=== PATIENT | male | born 1955 | race Caucasian/White ===

== ENCOUNTER 2020-08-12 17:17 | Observation (INO) | payer MEDICARE, BC ==
[2020-08-12] MEDS ORDERED: Bupivacaine 0.5%/EPINEPHrine 1:200,000 10 ML SDV INJECT ONE (17:18)
[2020-08-12] MEDS ORDERED: Sodium Chloride 0.9% 10 ML Syringe FLUSH PRN (17:40)
[2020-08-12] MEDS ORDERED: Lactated Ringers 1,000 ML IV SCH (17:45)
[2020-08-12] MEDS ORDERED: Piperacillin/Tazobactam 3.375 GM in Sodium Chloride 0.9% 50 ML IV SCH (18:00)
--- NOTE | 2020-08-12 18:05 | PCM.PN ---
- General Info Date of Service: 08/12/20 - Review of Systems Systems Review Comment:: 65 y/o male seen today in clinic with progressive RLQ pain. Now pain severe with movement and pressure. Also mildly elevated WBC. CT scan shows findings suggestive of acute appendicitis. Patient here for appendectomy. I have discussed the proposed appendectomy with the patient. Expectations of laparoscopic procedure with possible need to convert to an open procedure reviewed. Risks such as but not limited to bleeding, infection, organ injury and other diagnosis reviewed. The patient's questions reviewed and answered. He agrees to proceed. - Patient Data Vitals - Most Recent: Last Vital Signs Temp 100 F 08/12/20 17:58 Pulse 82 08/12/20 17:58 Resp 18 08/12/20 17:58 BP 127/78 08/12/20 17:58 Pulse Ox 98 08/12/20 17:58 Weight - Most Recent: 229 lb 6.4 oz Med Orders - Current: Current Medications Lactated Ringer's (Ringers, Lactated) 1,000 mls @ 125 mls/hr IV ASDIRECTED [facility] Last Admin: 08/12/20 17:45 Dose: 125 mls/hr Documented by: Sodium Chloride (Sodium Chloride 0.9% 10 Ml Syringe) 10 ml FLUSH ASDIRECTED PRN PRN Reason: Keep Vein Open Sepsis Event Note - Focused Exam Vital Signs: Vital Signs Temp Pulse Resp BP Pulse Ox 08/12/20 17:58 100 F 82 18 127/78 98 - Problem List Review Problem List Initiated/Reviewed/Updated: Yes - My Orders Last 24 Hours: My Active Orders 08/12/20 Dinner Nothing Per Oral Diet [DIET] 08/12/20 17:40 Patient to Empty Bladder [RC] ASDIRECTED RT Incentive Spirometry [RC] ASDIRECTED Verify Patient Consent Obtain [RC] ASDIRECTED Sodium Chloride 0.9% [Saline Flush] 10 ml FLUSH ASDIRECTED PRN Peripheral IV Insertion Adult [OM.PC] Routine Sequential Compression Device [OM.PC] Routine Resuscitation Status Routine 08/12/20 17:45 Lactated Ringers [Ringers, Lactated] 1,000 ml IV ASDIRECTED - Assessment Assessment:: Acute Appendicitis - Plan Plan:: Appendectomy
[2020-08-12] MEDS ORDERED: Bupivacaine 0.5%/EPINEPHrine 1:200,000 50 ML MDV INJECT ONE (18:26)
[2020-08-12] MEDS ORDERED: Ondansetron 4 MG/2 ML SDV IVPUSH PRN (19:11)
[2020-08-12] MEDS ORDERED: Morphine 2 MG/ML SYRINGE IVPUSH PRN (19:11)
--- NOTE | 2020-08-12 19:11 | PCM.OPNOTE ---
- General Post-Op/Procedure Note Date of Surgery/Procedure: 08/12/20 Operative Procedure(s): Laparoscopic Appendectomy Findings: Acutely inflamed appendix with exudate Pre Op Diagnosis: Acute Appendicitis Post-Op Diagnosis: Acute Appendicitis Anesthesia Technique: General ET Tube Primary Surgeon: Des Panda Pathology: Appendix EBL in mLs: 20 Complications: None Condition: Good
[2020-08-12] MEDS ORDERED: Ondansetron 4 MG/2 ML SDV IVPUSH ONE (19:16)
[2020-08-12] MEDS ORDERED: Acetaminophen 1,000 MG/100 ML Infusion Bottle Premix IV ONE (19:16)
[2020-08-12] MEDS ORDERED: Midazolam 1 MG/ML 2 ML SDV IV ONE (19:16)
[2020-08-12] MEDS ORDERED: fentaNYL 100 MCG/2 ML SDV IV ONE (19:16)
[2020-08-12] MEDS ORDERED: Neostigmine Methylsulfate 10 MG/10 ML MDV IVPUSH ONE (19:16)
[2020-08-12] MEDS ORDERED: Glycopyrrolate 0.2 MG/ML 5 ML MDV IV ONE (19:16)
[2020-08-12] MEDS ORDERED: Lidocaine 2% 5 ML SDV INJECT ONE (19:16)
[2020-08-12] MEDS ORDERED: Propofol 200 MG/20 ML SDV IV ONE (19:16)
[2020-08-12] MEDS ORDERED: Lactated Ringers 1,000 ML IV ONE (19:16)
[2020-08-12] MEDS ORDERED: Metoprolol Tartrate 5 MG/5 ML SDV IV ONE (19:16)
[2020-08-12] MEDS ORDERED: Ketorolac 30 MG/ML SDV IVPUSH ONE (19:16)
[2020-08-12] MEDS ORDERED: Succinylcholine 200 MG/10 ML MDV IV ONE (19:16)
[2020-08-12] MEDS ORDERED: Rocuronium 100 MG/10 ML MDV IV ONE (19:16)
[2020-08-12] MEDS ORDERED: Dexamethasone 4 MG/ML 5 ML MDV IVPUSH ONE (19:16)
[2020-08-12] MEDS: Lactated Ringers 1,000 ML IV SCH (23:16)
--- NOTE | 2020-08-13 01:20 | OR ---
DATE OF OPERATION: 08/12/2020 SURGEON: Des Panda MD PREOPERATIVE DIAGNOSIS: Acute appendicitis. POSTOPERATIVE DIAGNOSIS: Acute exudative appendicitis. OPERATION PERFORMED: Laparoscopic appendectomy. INDICATIONS FOR SURGERY: This 65-year-old male presented to the outpatient clinic with lower abdominal pain which had become severe in the right lower quadrant. CT scan of the abdomen was performed which showed findings consistent with acute appendicitis and he comes for appendectomy. FINDINGS: The appendix is acutely inflamed with some surrounding exudate. It does not appear to be perforated, although the induration and inflammation of the appendix appears to extend all the way up to just near the cecum. The adjacent cecum is soft and normal. No other intraabdominal abnormalities were seen. PROCEDURE IN DETAIL: The patient was taken to the operating room. He was given general endotracheal anesthesia and the abdomen was sterilely prepped and draped. A supraumbilical stab wound incision was made. Through this, a Veress needle was inserted and pneumoperitoneum via this needle to a pressure of 15 mmHg is achieved with carbon dioxide. The Veress needle was then replaced with a 5 mm trocar into which the 5 mm variable-angled laparoscopic camera was inserted. Under direct visualization, a 12 mm trocar was placed in the suprapubic midline and then another 5-mm trocar placed in the right lower quadrant. All trocar sites were infiltrated with Marcaine prior to incision. Intra-abdominal inspection was carried out and attention was turned to the appendix. Blunt dissection was used to free exudate and fatty tissue adhesions from the appendix until it was exposed all the way back to its junction with the cecum. A window was made through the mesoappendix at the appendiceal-cecal junction, and then an Endo-LASHAE with 2.5 mm staple length was fired across the appendiceal-cecal junction dividing the appendix from the cecum. Although there was some inflammation in this area, the cecal staple line appeared to be intact and of good quality. Two additional firings of the Endo-LASHAE are then carried out across the mesoappendix completely freeing the appendix. It was then placed into an Endo retrieval bag and extracted through the largest trocar site. Copious irrigation was performed of the operative region. Careful examination showed no sign of bleeding or any other complication. Additional viewing of the staple line showed it to be intact at the close of the procedure. After the area been thoroughly irrigated, and with no sign of any complication, the trocars were removed under direct visualization. The pneumoperitoneum was evacuated. The fascia of the suprapubic trocar site was closed with a figure-of- eight 0 Vicryl suture. Wounds were irrigated with Betadine and saline solution. Skin incisions approximated with interrupted 4-0 Vicryl. Benzoin and Steri- Strips were applied followed by antibiotic ointment and sterile dressings. The patient was awakened, extubated, and taken from the operating room in satisfactory condition. ESTIMATED BLOOD LOSS: 20 mL. COMPLICATIONS: None. PROGNOSIS: Good. /[id number] 112 BLANCO/YEMI JOHNSON
[2020-08-13] MEDS: Piperacillin/Tazobactam 3.375 GM in Sodium Chloride 0.9% 50 ML IV SCH ×6 (06:14→23:41)
--- NOTE | 2020-08-13 08:04 | PCM.SURGPN ---
- General Info Date of Service: 08/13/20 Date of Surgery/Procedure: 08/12/20 POD#: 1 Post-Op Diagnosis: Acute Appendicitis Functional Status: Reports: Pain Controlled (States pre-op pain is now gone) - Review of Systems General: Denies: Fever, Chills Pulmonary: Reports: No Symptoms Cardiovascular: Reports: No Symptoms Gastrointestinal: Denies: Abdominal Pain, Flatus, Nausea, Vomiting Musculoskeletal: Reports: No Symptoms - Patient Data Vitals - Most Recent: Last Vital Signs Temp 97.7 F 08/13/20 07:58 Pulse 59 L 08/13/20 07:58 Resp 15 08/13/20 07:58 BP 120/70 08/13/20 07:58 Pulse Ox 95 08/13/20 07:58 Weight - Most Recent: 229 lb 6.4 oz I&O - Last 24 Hours: Intake & Output 08/12/20 08/13/20 08/13/20 22:59 06:59 14:59 Intake Total 1223 Output Total 525 Balance 698 Lab Results Last 24 Hrs: Laboratory Results - last 24 hr 08/13/20 08/13/20 Range/Units 06:25 06:25 WBC 9.1 (3.2-10.1) x10-3/uL RBC 4.81 (3.90-5.90) x10(6)uL Hgb 14.8 (12.9-17.7) g/dL Hct 44.3 (38.3-50.1) % MCV 92.1 (80.8-98.7) fL MCH 30.8 (27.0-33.3) pg MCHC 33.4 (28.7-35.3) g/dL RDW 13.5 (12.4-15.0) % Plt Count 132 (117-477) x10(3)uL MPV 7.3 (6.7-11.0) fL Neut % (Auto) 88.3 H (40.3-71.8) % Lymph % (Auto) 6.3 L (15.8-45.3) % [place] % (Auto) 5.3 L (5.5-15.2) % Eos % (Auto) 0.0 L (0.1-6.8) % Baso % (Auto) 0.1 L (0.3-3.8) % Neut # (Auto) 8.0 H (1.7-6.9) x10-3/uL Lymph # (Auto) 0.6 (0.5-4.5) x10-3/uL [place] # (Auto) 0.5 (0.0-1.2) x10-3/uL Eos # (Auto) 0.0 (0.0-0.6) x10-3/uL Baso # (Auto) 0.0 (0.0-0.3) x10-3/uL Potassium 4.7 (3.5-5.3) mmol/L Med Orders - Current: Current Medications Lactated Ringer's (Ringers, Lactated) 1,000 mls @ 125 mls/hr IV ASDIRECTED [facility] Last Admin: 08/12/20 23:16 Dose: 125 mls/hr Documented by: Piperacillin Sod/Tazobactam (Sod 3.375 gm/ Sodium Chloride) 50 mls @ 100 mls/hr IV Q6H [facility] Last Admin: 08/13/20 06:14 Dose: 100 mls/hr Documented by: Metoprolol Succinate (Metoprolol Succinate 25 Mg Tab.Er) 25 mg PO DAILY [facility] Morphine Sulfate (Morphine 2 Mg/Ml Syringe) 2 mg IVPUSH Q1H PRN PRN Reason: Pain (severe 7-10) Ondansetron HCl (Ondansetron 4 Mg/2 Ml Sdv) 4 mg IVPUSH Q6H PRN PRN Reason: Nausea/Vomiting Sodium Chloride (Sodium Chloride 0.9% 10 Ml Syringe) 10 ml FLUSH ASDIRECTED PRN PRN Reason: Keep Vein Open Last Admin: 08/13/20 00:00 Dose: 10 ml Documented by: Discontinued Medications Bupivacaine HCl/Epinephrine Bitart (Bupivacaine 0.5%/Epinephrine 1:200,000 50 Ml Mdv) 10 ml INJECT .STK-MED ONE Stop: 08/12/20 18:27 Last Admin: 08/12/20 18:26 Dose: 10 ml Documented by: Lactated Ringer's (Ringers, Lactated) 1,000 mls @ 125 mls/hr IV ASDIRECTED [facility] Last Admin: 08/12/20 17:45 Dose: 125 mls/hr Documented by: Piperacillin Sod/Tazobactam (Sod 3.375 gm/ Sodium Chloride) 50 mls @ 100 mls/hr IV Q6H [facility] Last Admin: 08/12/20 18:09 Dose: 100 mls/hr Documented by: Piperacillin Sod/Tazobactam Sod (Piperacillin/Tazobactam 3.375 Gm Vial) Confirm Administered Dose 3.375 gm .ROUTE .STK-MED ONE Stop: 08/12/20 18:00 Last Admin: 08/12/20 18:04 Dose: Not Given Documented by: - Exam Wound/Incisions: Healing Well, Drainage (minimal). No: Erythema General: Alert, Oriented Lungs: Normal Respiratory Effort GI/Abdominal Exam: Soft, No Distention Extremities: Non-Tender Sepsis Event Note - Evaluation Sepsis Screening Result: No Definite Risk - Focused Exam Vital Signs: Vital Signs Temp Temp Pulse Resp BP Pulse Ox 08/13/20 07:58 97.7 F 59 L 15 120/70 95 08/13/20 03:55 98.0 F 58 L 18 111/69 96 08/13/20 03:00 51 L 18 103/67 95 08/13/20 02:00 52 L 18 112/63 95 08/13/20 01:00 55 L 18 111/64 93 L 08/13/20 00:00 98.3 F 63 18 120/67 94 L 08/12/20 23:30 98.3 F 62 20 119/71 95 08/12/20 23:00 99.0 F 68 18 123/72 95 08/12/20 22:30 99.1 F 65 20 121/70 94 L 08/12/20 22:00 98.3 F 67 19 120/72 96 08/12/20 21:30 98.1 F 66 20 124/73 94 L 08/12/20 20:55 98.1 F 70 20 130/74 96 08/12/20 20:25 98.0 F 70 20 128/73 93 L 08/12/20 20:10 98.0 F 73 19 138/78 94 L - Problem List Review Problem List Initiated/Reviewed/Updated: Yes - My Orders Last 24 Hours: Active Orders 24 hr Category Date Time Status Admission Status [Patient Status] [ADT] Routine ADT 08/12/20 17:17 Active Patient Status [ADT] Routine ADT 08/12/20 19:11 Active Ambulate [RC] ASDIRECTED Care 08/12/20 19:11 Active Antiembolic Devices [RC] .Routine Care 08/12/20 19:15 Active Intake and Output [RC] 06,14,22 Care 08/12/20 19:12 Active May Shower [RC] ASDIRECTED Care 08/12/20 19:11 Active Oxygen Therapy [RC] PRN Care 08/12/20 19:11 Active RT Incentive Spirometry [RC] ASDIRECTED Care 08/12/20 17:40 Active RT Incentive Spirometry [RC] Q1HWA Care 08/12/20 19:11 Active VTE/DVT Education [RC] Click to Edit Care 08/12/20 19:15 Active Vital Signs [RC] PER UNIT ROUTINE Care 08/12/20 19:11 Active Clear Liquid Diet [DIET] Diet 08/13/20 Breakfast Ordered Lactated Ringers [Ringers, Lactated] 1,000 ml Med 08/12/20 19:15 Active IV ASDIRECTED Metoprolol Succinate [Toprol XL] Med 08/13/20 09:00 Active 25 mg PO DAILY Morphine Med 08/12/20 19:11 Active 2 mg IVPUSH Q1H PRN Ondansetron [Zofran] Med 08/12/20 19:11 Active 4 mg IVPUSH Q6H PRN Piperacillin/Tazobactam [Zosyn] 3.375 gm Med 08/13/20 00:00 Active Sodium Chloride 0.9% [Normal Saline] 50 ml IV Q6H Sodium Chloride 0.9% [Saline Flush] Med 08/12/20 17:40 Active 10 ml FLUSH ASDIRECTED PRN DVT/VTE Prophylaxis Reflex [OM.PC] Per Unit Routine Oth 08/12/20 19:14 Ordered Peripheral IV Insertion Adult [OM.PC] Routine Oth 08/12/20 17:40 Ordered Sequential Compression Device [OM.PC] Routine Oth 08/12/20 17:40 Ordered Resuscitation Status Routine Resus Stat 08/12/20 17:40 Ordered Medication Orders Lactated Ringer's (Ringers, Lactated) 1,000 mls @ 125 mls/hr IV ASDIRECTED [facility] Last Admin: 08/12/20 23:16 Dose: 125 mls/hr Documented by: JAVIER Piperacillin Sod/Tazobactam (Sod 3.375 gm/ Sodium Chloride) 50 mls @ 100 mls/hr IV Q6H [facility] Last Admin: 08/13/20 06:14 Dose: 100 mls/hr Documented by: Admin: 08/13/20 00:00 Dose: 100 mls/hr Documented by: MARANDA Metoprolol Succinate (Metoprolol Succinate 25 Mg Tab.Er) 25 mg PO DAILY [facility] Morphine Sulfate (Morphine 2 Mg/Ml Syringe) 2 mg IVPUSH Q1H PRN PRN Reason: Pain (severe 7-10) Ondansetron HCl (Ondansetron 4 Mg/2 Ml Sdv) 4 mg IVPUSH Q6H PRN PRN Reason: Nausea/Vomiting Sodium Chloride (Sodium Chloride 0.9% 10 Ml Syringe) 10 ml FLUSH ASDIRECTED PRN PRN Reason: Keep Vein Open Last Admin: 08/13/20 00:00 Dose: 10 ml Documented by: MARANDA - Assessment Assessment (Free Text/Narrative):: POD#1 Appendectomy - no flatus yet Severe inflammation in area of appendix at time of surgery - Plan Plan (Free Text/Narrative):: Continue IV antibiotics today clear liquids slowly encourage ambulation
[2020-08-13] MEDS: Lactated Ringers 1,000 ML IV SCH ×2 (08:08→18:04)
[2020-08-13] MEDS: Sodium Chloride 0.9% 250 ML IV SCH ×4 (15:11→19:40)
--- NOTE | 2020-08-13 17:45 | PCM.SURGPN ---
- General Info Date of Service: 08/13/20 Date of Surgery/Procedure: 08/12/20 POD#: 1 Post-Op Diagnosis: Acute Appendicitis - Review of Systems General: Denies: Fever, Chills Gastrointestinal: Reports: Flatus (No BM yet), Other (Has tolerated fluids today but feels mildly bloated and not hungry at this time). Denies: Nausea, Vomiting Genitourinary: Reports: No Symptoms - Patient Data Vitals - Most Recent: Last Vital Signs Temp 97.7 F 08/13/20 07:58 Pulse 59 L 08/13/20 07:58 Resp 15 08/13/20 07:58 BP 120/70 08/13/20 07:58 Pulse Ox 95 08/13/20 08:00 Weight - Most Recent: 229 lb 6.4 oz I&O - Last 24 Hours: Intake & Output 08/13/20 08/13/20 08/13/20 06:59 14:59 22:59 Intake Total 1223 900 Output Total 525 800 500 Balance 698 100 -500 Lab Results Last 24 Hrs: Laboratory Results - last 24 hr 08/13/20 08/13/20 Range/Units 06:25 06:25 WBC 9.1 (3.2-10.1) x10-3/uL RBC 4.81 (3.90-5.90) x10(6)uL Hgb 14.8 (12.9-17.7) g/dL Hct 44.3 (38.3-50.1) % MCV 92.1 (80.8-98.7) fL MCH 30.8 (27.0-33.3) pg MCHC 33.4 (28.7-35.3) g/dL RDW 13.5 (12.4-15.0) % Plt Count 132 (117-477) x10(3)uL MPV 7.3 (6.7-11.0) fL Neut % (Auto) 88.3 H (40.3-71.8) % Lymph % (Auto) 6.3 L (15.8-45.3) % [place] % (Auto) 5.3 L (5.5-15.2) % Eos % (Auto) 0.0 L (0.1-6.8) % Baso % (Auto) 0.1 L (0.3-3.8) % Neut # (Auto) 8.0 H (1.7-6.9) x10-3/uL Lymph # (Auto) 0.6 (0.5-4.5) x10-3/uL [place] # (Auto) 0.5 (0.0-1.2) x10-3/uL Eos # (Auto) 0.0 (0.0-0.6) x10-3/uL Baso # (Auto) 0.0 (0.0-0.3) x10-3/uL Potassium 4.7 (3.5-5.3) mmol/L Med Orders - Current: Current Medications Lactated Ringer's (Ringers, Lactated) 1,000 mls @ 100 mls/hr IV ASDIRECTED [facility] Last Admin: 08/13/20 08:08 Dose: 125 mls/hr Documented by: Piperacillin Sod/Tazobactam (Sod 3.375 gm/ Sodium Chloride) 50 mls @ 100 mls/hr IV Q6H [facility] Last Admin: 08/13/20 13:55 Dose: 100 mls/hr Documented by: Sodium Chloride (Normal Saline) 250 mls @ 30 mls/hr IV ASDIRECTED [facility] Last Admin: 08/13/20 15:11 Dose: 30 mls/hr Documented by: Metoprolol Succinate (Metoprolol Succinate 25 Mg Tab.Er) 25 mg PO DAILY@1800 [facility] Morphine Sulfate (Morphine 2 Mg/Ml Syringe) 2 mg IVPUSH Q1H PRN PRN Reason: Pain (severe 7-10) Ondansetron HCl (Ondansetron 4 Mg/2 Ml Sdv) 4 mg IVPUSH Q6H PRN PRN Reason: Nausea/Vomiting Sodium Chloride (Sodium Chloride 0.9% 10 Ml Syringe) 10 ml FLUSH ASDIRECTED PRN PRN Reason: Keep Vein Open Last Admin: 08/13/20 00:00 Dose: 10 ml Documented by: Discontinued Medications Bupivacaine HCl/Epinephrine Bitart (Bupivacaine 0.5%/Epinephrine 1:200,000 50 Ml Mdv) 10 ml INJECT .STK-MED ONE Stop: 08/12/20 18:27 Last Admin: 08/12/20 18:26 Dose: 10 ml Documented by: Bupivacaine HCl/Epinephrine Bitart (Bupivacaine 0.5%/Epinephrine 1:200,000 10 Ml Sdv) 10 ml INJECT .STK-MED ONE Stop: 08/12/20 17:19 Lactated Ringer's (Ringers, Lactated) 1,000 mls @ 125 mls/hr IV ASDIRECTED [facility] Last Admin: 08/12/20 17:45 Dose: 125 mls/hr Documented by: Piperacillin Sod/Tazobactam (Sod 3.375 gm/ Sodium Chloride) 50 mls @ 100 mls/hr IV Q6H [facility] Last Admin: 08/12/20 18:09 Dose: 100 mls/hr Documented by: Piperacillin Sod/Tazobactam Sod (Piperacillin/Tazobactam 3.375 Gm Vial) Confirm Administered Dose 3.375 gm .ROUTE .STK-MED ONE Stop: 08/12/20 18:00 Last Admin: 08/12/20 18:04 Dose: Not Given Documented by: - Exam General: Alert, Oriented GI/Abdominal Exam: Soft, Tender (mild tenderness RLQ) Sepsis Event Note - Evaluation Sepsis Screening Result: No Definite Risk - Focused Exam Vital Signs: Vital Signs Temp Pulse Resp BP Pulse Ox Pulse Ox 08/13/20 08:00 95 08/13/20 07:58 97.7 F 59 L 15 120/70 95 - Problem List Review Problem List Initiated/Reviewed/Updated: Yes - My Orders Last 24 Hours: Active Orders 24 hr Category Date Time Status Admission Status [Patient Status] [ADT] Routine ADT 08/13/20 08:09 Active Ambulate [RC] ASDIRECTED Care 08/12/20 19:11 Active Antiembolic Devices [RC] .Routine Care 08/12/20 19:15 Active Intake and Output [RC] 06,14,22 Care 08/12/20 19:12 Active May Shower [RC] ASDIRECTED Care 08/12/20 19:11 Active Oxygen Therapy [RC] PRN Care 08/12/20 19:11 Active RT Incentive Spirometry [RC] ASDIRECTED Care 08/12/20 17:40 Active RT Incentive Spirometry [RC] Q1HWA Care 08/12/20 19:11 Active VTE/DVT Education [RC] Click to Edit Care 08/12/20 19:15 Active Vital Signs [RC] 00,04,08,12,16,20 Care 08/12/20 19:11 Active Clear Liquid Diet [DIET] Diet 08/13/20 Breakfast Ordered Full Liquid Diet [DIET] Diet 08/14/20 Breakfast Ordered Lactated Ringers [Ringers, Lactated] 1,000 ml Med 08/12/20 19:15 Active IV ASDIRECTED Metoprolol Succinate [Toprol XL] Med 08/13/20 18:00 Active 25 mg PO DAILY@1800 Morphine Med 08/12/20 19:11 Active 2 mg IVPUSH Q1H PRN Ondansetron [Zofran] Med 08/12/20 19:11 Active 4 mg IVPUSH Q6H PRN Piperacillin/Tazobactam [Zosyn] 3.375 gm Med 08/13/20 00:00 Active Sodium Chloride 0.9% [Normal Saline] 50 ml IV Q6H Sodium Chloride 0.9% [Normal Saline] 250 ml Med 08/13/20 08:30 Active IV ASDIRECTED Sodium Chloride 0.9% [Saline Flush] Med 08/12/20 17:40 Active 10 ml FLUSH ASDIRECTED PRN DVT/VTE Prophylaxis Reflex [OM.PC] Per Unit Routine Oth 08/12/20 19:14 Ordered Peripheral IV Insertion Adult [OM.PC] Routine Oth 08/12/20 17:40 Ordered Sequential Compression Device [OM.PC] Routine Oth 08/12/20 17:40 Ordered Resuscitation Status Routine Resus Stat 08/12/20 17:40 Ordered Medication Orders Lactated Ringer's (Ringers, Lactated) 1,000 mls @ 100 mls/hr IV ASDIRECTED [facility] Last Admin: 08/13/20 08:08 Dose: 125 mls/hr Documented by: Infusion: 08/13/20 07:16 Dose: 125 mls/hr Documented by: Admin: 08/12/20 23:16 Dose: 125 mls/hr Documented by: JAVIER Piperacillin Sod/Tazobactam (Sod 3.375 gm/ Sodium Chloride) 50 mls @ 100 mls/hr IV Q6H [facility] Last Admin: 08/13/20 13:55 Dose: 100 mls/hr Documented by: Admin: 08/13/20 06:14 Dose: 100 mls/hr Documented by: Admin: 08/13/20 00:00 Dose: 100 mls/hr Documented by: MARANDA Sodium Chloride (Normal Saline) 250 mls @ 30 mls/hr IV ASDIRECTED [facility] Last Admin: 08/13/20 15:11 Dose: 30 mls/hr Documented by: PAUL Metoprolol Succinate (Metoprolol Succinate 25 Mg Tab.Er) 25 mg PO DAILY@1800 [facility] Morphine Sulfate (Morphine 2 Mg/Ml Syringe) 2 mg IVPUSH Q1H PRN PRN Reason: Pain (severe 7-10) Ondansetron HCl (Ondansetron 4 Mg/2 Ml Sdv) 4 mg IVPUSH Q6H PRN PRN Reason: Nausea/Vomiting Sodium Chloride (Sodium Chloride 0.9% 10 Ml Syringe) 10 ml FLUSH ASDIRECTED PRN PRN Reason: Keep Vein Open Last Admin: 08/13/20 00:00 Dose: 10 ml Documented by: MARANDA - Assessment Assessment (Free Text/Narrative):: POD#1 - Plan Plan (Free Text/Narrative):: Will continue observation and IV antibiotics May try full liquids in AM if doing well
[2020-08-13] MEDS ORDERED: Metoprolol Succinate 25 MG Tab.ER PO SCH (18:00)
[2020-08-14] MEDS: Lactated Ringers 1,000 ML IV SCH (05:35)
[2020-08-14] MEDS: Piperacillin/Tazobactam 3.375 GM in Sodium Chloride 0.9% 50 ML IV SCH ×2 (06:07→11:42)
--- NOTE | 2020-08-14 07:13 | PCM.SURGPN ---
- General Info Date of Service: 08/14/20 Date of Surgery/Procedure: 08/12/20 POD#: 2 Post-Op Diagnosis: Acute Appendicitis Functional Status: Reports: Pain Controlled (Has only mild pain which he thinks is a little better this am) - Review of Systems Pulmonary: Reports: No Symptoms Gastrointestinal: Reports: Flatus (no BM yet). Denies: Nausea, Vomiting Genitourinary: Reports: No Symptoms - Patient Data Vitals - Most Recent: Last Vital Signs Temp 97.7 F 08/14/20 06:08 Pulse 59 L 08/14/20 06:08 Resp 18 08/14/20 06:08 BP 117/78 08/14/20 06:08 Pulse Ox 96 08/14/20 06:08 Weight - Most Recent: 229 lb 6.4 oz I&O - Last 24 Hours: Intake & Output 08/13/20 08/14/20 08/14/20 22:59 06:59 14:59 Intake Total 1252 867 Output Total 1200 600 Balance 52 267 Lab Results Last 24 Hrs: Laboratory Results - last 24 hr 08/13/20 08/13/20 Range/Units 06:25 06:25 WBC 9.1 (3.2-10.1) x10-3/uL RBC 4.81 (3.90-5.90) x10(6)uL Hgb 14.8 (12.9-17.7) g/dL Hct 44.3 (38.3-50.1) % MCV 92.1 (80.8-98.7) fL MCH 30.8 (27.0-33.3) pg MCHC 33.4 (28.7-35.3) g/dL RDW 13.5 (12.4-15.0) % Plt Count 132 (117-477) x10(3)uL MPV 7.3 (6.7-11.0) fL Neut % (Auto) 88.3 H (40.3-71.8) % Lymph % (Auto) 6.3 L (15.8-45.3) % Colbert % (Auto) 5.3 L (5.5-15.2) % Eos % (Auto) 0.0 L (0.1-6.8) % Baso % (Auto) 0.1 L (0.3-3.8) % Neut # (Auto) 8.0 H (1.7-6.9) x10-3/uL Lymph # (Auto) 0.6 (0.5-4.5) x10-3/uL Colbert # (Auto) 0.5 (0.0-1.2) x10-3/uL Eos # (Auto) 0.0 (0.0-0.6) x10-3/uL Baso # (Auto) 0.0 (0.0-0.3) x10-3/uL Potassium 4.7 (3.5-5.3) mmol/L Med Orders - Current: Current Medications Lactated Ringer's (Ringers, Lactated) 1,000 mls @ 50 mls/hr IV ASDIRECTED [facility] Last Admin: 08/14/20 05:35 Dose: 125 mls/hr Documented by: Piperacillin Sod/Tazobactam (Sod 3.375 gm/ Sodium Chloride) 50 mls @ 100 mls/hr IV Q6H [facility] Last Admin: 08/14/20 06:07 Dose: 100 mls/hr Documented by: Sodium Chloride (Normal Saline) 250 mls @ 30 mls/hr IV ASDIRECTED [facility] Last Admin: 08/13/20 19:40 Dose: 30 mls/hr Documented by: Metoprolol Succinate (Metoprolol Succinate 25 Mg Tab.Er) 25 mg PO DAILY@1800 [facility] Last Admin: 08/13/20 18:59 Dose: 25 mg Documented by: Morphine Sulfate (Morphine 2 Mg/Ml Syringe) 2 mg IVPUSH Q1H PRN PRN Reason: Pain (severe 7-10) Ondansetron HCl (Ondansetron 4 Mg/2 Ml Sdv) 4 mg IVPUSH Q6H PRN PRN Reason: Nausea/Vomiting Sodium Chloride (Sodium Chloride 0.9% 10 Ml Syringe) 10 ml FLUSH ASDIRECTED PRN PRN Reason: Keep Vein Open Last Admin: 08/13/20 00:00 Dose: 10 ml Documented by: Discontinued Medications Bupivacaine HCl/Epinephrine Bitart (Bupivacaine 0.5%/Epinephrine 1:200,000 50 Ml Mdv) 10 ml INJECT .STK-MED ONE Stop: 08/12/20 18:27 Last Admin: 08/12/20 18:26 Dose: 10 ml Documented by: Bupivacaine HCl/Epinephrine Bitart (Bupivacaine 0.5%/Epinephrine 1:200,000 10 Ml Sdv) 10 ml INJECT .STK-MED ONE Stop: 08/12/20 17:19 Lactated Ringer's (Ringers, Lactated) 1,000 mls @ 125 mls/hr IV ASDIRECTED [facility] Last Admin: 08/12/20 17:45 Dose: 125 mls/hr Documented by: Piperacillin Sod/Tazobactam (Sod 3.375 gm/ Sodium Chloride) 50 mls @ 100 mls/hr IV Q6H [facility] Last Admin: 08/12/20 18:09 Dose: 100 mls/hr Documented by: Piperacillin Sod/Tazobactam Sod (Piperacillin/Tazobactam 3.375 Gm Vial) Confirm Administered Dose 3.375 gm .ROUTE .STK-MED ONE Stop: 08/12/20 18:00 Last Admin: 08/12/20 18:04 Dose: Not Given Documented by: - Exam Wound/Incisions: Healing Well, No Drainage. No: Erythema General: Alert, Oriented Lungs: Normal Respiratory Effort GI/Abdominal Exam: Soft, Tender (minimal on Right side). No: No Distention, Guarding Extremities: Non-Tender Sepsis Event Note - Evaluation Sepsis Screening Result: No Definite Risk - Focused Exam Vital Signs: Vital Signs Temp Temp Pulse Resp BP Pulse Ox 08/14/20 06:08 97.7 F 59 L 18 117/78 96 08/13/20 23:41 97.7 F 56 L 18 155/66 H 96 08/13/20 20:00 98.4 F 73 18 120/71 95 - Problem List Review Problem List Initiated/Reviewed/Updated: Yes - My Orders Last 24 Hours: Active Orders 24 hr Category Date Time Status Admission Status [Patient Status] [ADT] Routine ADT 08/13/20 08:09 Active Clear Liquid Diet [DIET] Diet 08/13/20 Breakfast Ordered Full Liquid Diet [DIET] Diet 08/14/20 Breakfast Active Metoprolol Succinate [Toprol XL] Med 08/13/20 18:00 Active 25 mg PO DAILY@1800 Sodium Chloride 0.9% [Normal Saline] 250 ml Med 08/13/20 08:30 Active IV ASDIRECTED Medication Orders Lactated Ringer's (Ringers, Lactated) 1,000 mls @ 50 mls/hr IV ASDIRECTED [facility] Last Admin: 08/14/20 05:35 Dose: 125 mls/hr Documented by: Infusion: 08/14/20 02:04 Dose: 125 mls/hr Documented by: Admin: 08/13/20 18:04 Dose: 125 mls/hr Documented by: Infusion: 08/13/20 16:08 Dose: 125 mls/hr Documented by: Admin: 08/13/20 08:08 Dose: 125 mls/hr Documented by: Infusion: 08/13/20 07:16 Dose: 125 mls/hr Documented by: Admin: 08/12/20 23:16 Dose: 125 mls/hr Documented by: JAVIER Piperacillin Sod/Tazobactam (Sod 3.375 gm/ Sodium Chloride) 50 mls @ 100 mls/hr IV Q6H [facility] Last Admin: 08/14/20 06:07 Dose: 100 mls/hr Documented by: Admin: 08/13/20 23:41 Dose: 100 mls/hr Documented by: Admin: 08/13/20 18:56 Dose: 100 mls/hr Documented by: Admin: 08/13/20 13:55 Dose: 100 mls/hr Documented by: Admin: 08/13/20 06:14 Dose: 100 mls/hr Documented by: Admin: 08/13/20 00:00 Dose: 100 mls/hr Documented by: MARANDA Sodium Chloride (Normal Saline) 250 mls @ 30 mls/hr IV ASDIRECTED [facility] Last Admin: 08/13/20 19:40 Dose: 30 mls/hr Documented by: Admin: 08/13/20 18:57 Dose: 30 mls/hr Documented by: Admin: 08/13/20 18:56 Dose: 30 mls/hr Documented by: Admin: 08/13/20 15:11 Dose: 30 mls/hr Documented by: PAUL Metoprolol Succinate (Metoprolol Succinate 25 Mg Tab.Er) 25 mg PO DAILY@1800 [facility] Last Admin: 08/13/20 18:59 Dose: 25 mg Documented by: [email or web address] Morphine Sulfate (Morphine 2 Mg/Ml Syringe) 2 mg IVPUSH Q1H PRN PRN Reason: Pain (severe 7-10) Ondansetron HCl (Ondansetron 4 Mg/2 Ml Sdv) 4 mg IVPUSH Q6H PRN PRN Reason: Nausea/Vomiting Sodium Chloride (Sodium Chloride 0.9% 10 Ml Syringe) 10 ml FLUSH ASDIRECTED PRN PRN Reason: Keep Vein Open Last Admin: 08/13/20 00:00 Dose: 10 ml Documented by: MARANDA - Assessment Assessment (Free Text/Narrative):: POD#2 Appendectomy for severe acute appendicitis - improving - Plan Plan (Free Text/Narrative):: Will advance diet slowly today Continue IV antibiotics for now Slow IV
--- NOTE | 2020-08-14 14:58 | PCM.SURGPN ---
- General Info Date of Service: 08/14/20 Date of Surgery/Procedure: 08/12/20 POD#: 2 Post-Op Diagnosis: Acute Appendicitis - Review of Systems Gastrointestinal: Reports: Flatus, Other (tolerated full liquids well without any feeling of distention). Denies: Nausea, Vomiting - Patient Data Vitals - Most Recent: Last Vital Signs Temp 98.1 F 08/14/20 13:00 Pulse 63 08/14/20 13:00 Resp 16 08/14/20 13:00 BP 136/80 08/14/20 13:00 Pulse Ox 98 08/14/20 13:00 Weight - Most Recent: 229 lb 6.4 oz I&O - Last 24 Hours: Intake & Output 08/13/20 08/14/20 08/14/20 22:59 06:59 14:59 Intake Total 1252 867 548 Output Total 1200 600 Balance 52 267 548 Med Orders - Current: Current Medications Lactated Ringer's (Ringers, Lactated) 1,000 mls @ 50 mls/hr IV ASDIRECTED [facility] Last Infusion: 08/14/20 09:00 Dose: 50 mls/hr Documented by: Piperacillin Sod/Tazobactam (Sod 3.375 gm/ Sodium Chloride) 50 mls @ 100 mls/hr IV Q6H [facility] Last Admin: 08/14/20 11:42 Dose: 100 mls/hr Documented by: Sodium Chloride (Normal Saline) 250 mls @ 30 mls/hr IV ASDIRECTED [facility] Last Admin: 08/13/20 19:40 Dose: 30 mls/hr Documented by: Metoprolol Succinate (Metoprolol Succinate 25 Mg Tab.Er) 25 mg PO DAILY@1800 [facility] Last Admin: 08/13/20 18:59 Dose: 25 mg Documented by: Morphine Sulfate (Morphine 2 Mg/Ml Syringe) 2 mg IVPUSH Q1H PRN PRN Reason: Pain (severe 7-10) Ondansetron HCl (Ondansetron 4 Mg/2 Ml Sdv) 4 mg IVPUSH Q6H PRN PRN Reason: Nausea/Vomiting Sodium Chloride (Sodium Chloride 0.9% 10 Ml Syringe) 10 ml FLUSH ASDIRECTED PRN PRN Reason: Keep Vein Open Last Admin: 08/13/20 00:00 Dose: 10 ml Documented by: Discontinued Medications Bupivacaine HCl/Epinephrine Bitart (Bupivacaine 0.5%/Epinephrine 1:200,000 50 Ml Mdv) 10 ml INJECT .STK-MED ONE Stop: 08/12/20 18:27 Last Admin: 08/12/20 18:26 Dose: 10 ml Documented by: Bupivacaine HCl/Epinephrine Bitart (Bupivacaine 0.5%/Epinephrine 1:200,000 10 Ml Sdv) 10 ml INJECT .STK-MED ONE Stop: 08/12/20 17:19 Lactated Ringer's (Ringers, Lactated) 1,000 mls @ 125 mls/hr IV ASDIRECTED [facility] Last Admin: 08/12/20 17:45 Dose: 125 mls/hr Documented by: Piperacillin Sod/Tazobactam (Sod 3.375 gm/ Sodium Chloride) 50 mls @ 100 mls/hr IV Q6H [facility] Last Admin: 08/12/20 18:09 Dose: 100 mls/hr Documented by: Piperacillin Sod/Tazobactam Sod (Piperacillin/Tazobactam 3.375 Gm Vial) Confirm Administered Dose 3.375 gm .ROUTE .STK-MED ONE Stop: 08/12/20 18:00 Last Admin: 08/12/20 18:04 Dose: Not Given Documented by: Sepsis Event Note - Evaluation Sepsis Screening Result: No Definite Risk - Focused Exam Vital Signs: Vital Signs Temp Pulse Resp BP Pulse Ox 08/14/20 13:00 98.1 F 63 16 136/80 98 08/14/20 08:00 98.4 F 63 16 115/67 96 08/14/20 06:08 97.7 F 59 L 18 117/78 96 - Problem List Review Problem List Initiated/Reviewed/Updated: Yes - My Orders Last 24 Hours: Active Orders 24 hr Category Date Time Status Full Liquid Diet [DIET] Diet 08/14/20 Breakfast Active Metoprolol Succinate [Toprol XL] Med 08/13/20 18:00 Active 25 mg PO DAILY@1800 Medication Orders Lactated Ringer's (Ringers, Lactated) 1,000 mls @ 50 mls/hr IV ASDIRECTED [facility] Last Infusion: 08/14/20 09:00 Dose: 50 mls/hr Documented by: Admin: 08/14/20 05:35 Dose: 125 mls/hr Documented by: Infusion: 08/14/20 02:04 Dose: 125 mls/hr Documented by: Admin: 08/13/20 18:04 Dose: 125 mls/hr Documented by: Infusion: 08/13/20 16:08 Dose: 125 mls/hr Documented by: Admin: 08/13/20 08:08 Dose: 125 mls/hr Documented by: Infusion: 08/13/20 07:16 Dose: 125 mls/hr Documented by: Admin: 08/12/20 23:16 Dose: 125 mls/hr Documented by: JAVIER Piperacillin Sod/Tazobactam (Sod 3.375 gm/ Sodium Chloride) 50 mls @ 100 mls/hr IV Q6H [facility] Last Admin: 08/14/20 11:42 Dose: 100 mls/hr Documented by: Admin: 08/14/20 06:07 Dose: 100 mls/hr Documented by: Admin: 08/13/20 23:41 Dose: 100 mls/hr Documented by: Admin: 08/13/20 18:56 Dose: 100 mls/hr Documented by: Admin: 08/13/20 13:55 Dose: 100 mls/hr Documented by: Admin: 08/13/20 06:14 Dose: 100 mls/hr Documented by: Admin: 08/13/20 00:00 Dose: 100 mls/hr Documented by: MARANDA Sodium Chloride (Normal Saline) 250 mls @ 30 mls/hr IV ASDIRECTED [facility] Last Admin: 08/13/20 19:40 Dose: 30 mls/hr Documented by: Admin: 08/13/20 18:57 Dose: 30 mls/hr Documented by: Admin: 08/13/20 18:56 Dose: 30 mls/hr Documented by: Admin: 08/13/20 15:11 Dose: 30 mls/hr Documented by: PAUL Metoprolol Succinate (Metoprolol Succinate 25 Mg Tab.Er) 25 mg PO DAILY@1800 [facility] Last Admin: 08/13/20 18:59 Dose: 25 mg Documented by: [id number] Morphine Sulfate (Morphine 2 Mg/Ml Syringe) 2 mg IVPUSH Q1H PRN PRN Reason: Pain (severe 7-10) Ondansetron HCl (Ondansetron 4 Mg/2 Ml Sdv) 4 mg IVPUSH Q6H PRN PRN Reason: Nausea/Vomiting Sodium Chloride (Sodium Chloride 0.9% 10 Ml Syringe) 10 ml FLUSH ASDIRECTED PRN PRN Reason: Keep Vein Open Last Admin: 08/13/20 00:00 Dose: 10 ml Documented by: AMRANDA - Assessment Assessment (Free Text/Narrative):: POD#2 Appendectomy - doing well - Plan Plan (Free Text/Narrative):: Discharge
== END 2020-08-14 15:38 | disposition home or self-care (01) ==
LOC: FB.SDS 17:17 → FB.MS 17:18 → FB.SDS 08-13 08:08 → FB.MS 08-13 08:09
PROVIDERS: ADMIT Family Medicine; ATTEND Surgery
DX: R10.31 Right lower quadrant pain (principal); K35.30 Acute appendicitis with localized peritonitis, without perforation or gangrene; N40.0 Benign prostatic hyperplasia without lower urinary tract symptoms; N32.89 Other specified disorders of bladder; I70.90 Unspecified atherosclerosis; M51.9 Unspecified thoracic, thoracolumbar and lumbosacral intervertebral disc disorder; M47.816 Spondylosis without myelopathy or radiculopathy, lumbar region; M41.9 Scoliosis, unspecified
CPT/HCPCS: 00840; 36415; 74177; 84132; 85025; 94150; 96365; 96366; 96376; A9270; G0378; J0131; J0330; J1100; J1885; J2250; J2405; J2543; J2704; J2710; J3010; J3490; J7050; J7120; Q9967; 88304

== ENCOUNTER 2023-02-21 14:53 | Emergency (ER) | payer MEDICARE, BC ==
[2023-02-21 15:30] LABS: BASOPHILS PERCENT AUTO 0.1 % (0.3-3.8); EOSINOPHILS PERCENT AUTO 0.2 % (0.1-6.8); HEMATOCRIT 47.4 % (38.3-50.1); HEMOGLOBIN 16.3 g/dL (12.9-17.7); LYMPHOCYTES ABSOLUTE AUTO 0.9 x10-3/uL (0.5-4.5); LYMPHOCYTES PERCENT AUTO 8.8 % (15.8-45.3); MEAN CORPUSCULAR HEMOGLOBIN 31.3 pg (27.0-33.3); MEAN CORPUSCULAR HGB CONC 34.4 g/dL (28.7-35.3); MEAN CORPUSCULAR VOLUME 90.9 fL (80.8-98.7); MEAN PLATELET VOLUME 7.1 fL (6.7-11.0); MONOCYTES ABSOLUTE AUTO 0.9 x10-3/uL (0.0-1.2); MONOCYTES PERCENT AUTO 8.7 % (5.5-15.2); NEUTROPHILS ABSOLUTE AUTO 8.6 x10-3/uL (1.7-6.9); NEUTROPHILS PERCENT AUTO 82.2 % (40.3-71.8); PLATELET COUNT,PLT 186 x10(3)uL (117-477); RED BLOOD CELL COUNT 5.22 x10(6)uL (3.90-5.90); RED CELL DISTRIBUTION WIDTH 13.1 % (12.4-15.0); WHITE BLOOD CELL COUNT,WBC 10.4 x10-3/uL (3.2-10.1)
[2023-02-21 15:31] LABS: BLOOD UREA NITROGEN,BUN 21 mg/dL (7-18); BUN/CREATININE RATIO 23.3 (9-20); CALCIUM 9.4 mg/dL (8.6-10.2); CARBON DIOXIDE,CO2 28 mmol/L (21-32); CHLORIDE,CL 98 mmol/L (100-110); CREATININE 0.9 mg/dL (0.70-1.30); EST CRCL DRUG DOSING (CG) 81.34 mL/min; ESTIMATED GFR 92 mL/min (>60); GLUCOSE RANDOM 141 mg/dL (80-116); SODIUM,NA 135 mmol/L (135-145)
[2023-02-21 15:37] LABS: A/G RATIO 1.3; ALANINE AMINOTRANSFERASE,ALT 70 U/L (12-36); ALBUMIN 3.9 g/dL (3.2-4.6); ALKALINE PHOSPHATASE 56 IU/L (56-112); ASPARTATE AMNIOTRANSFERASE,AST 19 IU/L (5-25); BILIRUBIN TOTAL 0.7 mg/dL (0.1-1.3); PROTEIN TOTAL,TP 6.9 g/dL (6.0-8.0)
[2023-02-21 15:39] LABS: C-REACTIVE PROTEIN <0.05 mg/dL (<0.33); TROPONIN I 4.9 pg/mL (4.0-60.3)
[2023-02-21] MEDS ORDERED: Sodium Chloride 0.9% 10 ML Syringe FLUSH PRN (16:13)
[2023-02-21] MEDS ORDERED: Iopamidol 755 Mg/ML 100 ML Bottle IV ONE (16:26)
== END 2023-02-21 18:32 | disposition home or self-care (01) ==
LOC: FB.ED 14:53
DX: I24.9 Acute ischemic heart disease, unspecified (principal); M54.6 Pain in thoracic spine; K21.9 Gastro-esophageal reflux disease without esophagitis; E78.00 Pure hypercholesterolemia, unspecified; I10 Essential (primary) hypertension; E11.9 Type 2 diabetes mellitus without complications; E66.9 Obesity, unspecified; Z68.29 Body mass index [BMI] 29.0-29.9, adult; Z88.8 Allergy status to other drugs, medicaments and biological substances; Z79.82 Long term (current) use of aspirin; Z79.899 Other long term (current) drug therapy
CPT/HCPCS: 36415; 71046; 71275; 80053; 84484; 85025; 85379; 86140; 93005; 99285; J3490; Q9967